=== PATIENT | male | born 1970 | race Caucasian/White ===

== ENCOUNTER → 2016-05-18 | Outpatient (CLI) | payer BC ==
[~2016-05-18] MED LIST: Bupivacaine 0.25% 10 ML SDV INJECT STA; Iopamidol 612 MG/ML 30 ML SDV IARTIC STA; Triamcinolone Acetonide 40 MG/ML 1 ML MDV INJECT STA
--- NOTE | 2016-05-18 12:18 | CR ---
EXAMINATION: Fluoro guided left hip steroid injection. HISTORY: Pain FINDINGS: Recent radiographs demonstrated moderate degenerative changes in the right hip joint. After written informed consent was obtained, under Fluoro guidance, using 1% lidocaine under aseptic conditions 22-gauge spinal needle was introduced into the left hip joint. After confirmation with c ontrast 80 mg of Kenalog, 03 cc of Marcaine was injected into the joint. The patient tolerated the p rocedure well. IMPRESSION: Successful Fluoro guided left hip joint steroid injection.
== END ==
LOC: MW.DI 09:56
PROVIDERS: ATTEND Orthopaedic Surgery
DX: M25.552 Pain in left hip (principal); M16.12 Unilateral primary osteoarthritis, left hip
CPT/HCPCS: 20610; 77002; J3301; Q9967

== ENCOUNTER 2017-05-08 09:34 | Day surgery (SDC) | payer BC ==
[~2017-05-08 09:34] MED LIST changes: +Acetaminophen/HYDROcodone 325-10 MG Tab PO PRN; -Bupivacaine 0.25% 10 ML SDV INJECT STA; +Bupivacaine 0.25% 10 ML SDV ONE; +Dexamethasone 4 MG/ML 5 ML MDV ONE; -Iopamidol 612 MG/ML 30 ML SDV IARTIC STA; +Ketorolac 10 MG Tab PO PRN; +Lactated Ringers 1,000 ML IV SCH; +Lidocaine 2% 5 ML SDV ONE; +Midazolam 1 MG/ML 2 ML SDV ONE; +Ondansetron 4 MG/2 ML SDV ONE; +Propofol 200 MG/20 ML SDV ONE; +Rocuronium 10 MG/ML 10 ML Syringe ONE; +Succinylcholine 200 MG/10 ML MDV ONE; -Triamcinolone Acetonide 40 MG/ML 1 ML MDV INJECT STA; +ceFAZolin 1 GM in Premix Bag 1 BAG IV SCH; +ceFAZolin/Dextrose,Iso-Osmotic 2 GM/50 ML Duplex Bag IV ONE; +diphenhydrAMINE 50 MG/ML SDV ONE; +fentaNYL 250 MCG/5 ML SDV ONE
--- NOTE | 2017-05-08 10:22 | PCM.PREANE ---
Preanesthetic Assessment - Anesthesia/Transfusion/Family Hx Anesthesia History: Prior Anesthesia Without Reaction Family History of Anesthesia Reaction: No Transfusion History: No Prior Transfusion(s) - Review of Systems General: No Symptoms Pulmonary: No Symptoms Cardiovascular: No Symptoms (Denies chest pain, palpitations, SOB or any other symptoms) Gastrointestinal: No Symptoms Neurological: No Symptoms Other: Reports: None - Physical Assessment O2 Sat by Pulse Oximetry: 96 Respiratory Rate: 16 Vital Signs: Last Vital Signs Temp 36.6 C 05/08/17 10:11 Pulse 68 05/08/17 10:11 Resp 16 05/08/17 10:11 BP 128/84 05/08/17 10:11 Pulse Ox 96 05/08/17 10:11 Height: 1.57 m Weight: 72.575 kg ASA Class: 2 Mental Status: Alert & Oriented x3 Airway Class: Mallampati = 2 Dentition: Reports: Normal Dentition ROM/Head Extension: Full Lungs: Clear to Auscultation Cardiovascular: Regular Rate - Allergies Allergies/Adverse Reactions: Allergies Allergy/AdvReac Type Severity Reaction Status Date / Time No Known Allergies Allergy Verified 05/06/17 08:34 - Blood Blood Available: No - Anesthesia Plan Free Text/Narrative:: GA with ETT. Patient denies any cardiac symptoms. - Acknowledgements Anesthesia Type Planned: General Anesthesia Pt an Appropriate Candidate for the Planned Anesthesia: Yes Alternatives and Risks of Anesthesia Discussed w Pt/Guardian: Yes Pt/Guardian Understands and Agrees with Anesthesia Plan: Yes PreAnesthesia Questionnaire - Past Health History Medical/Surgical History: Denies Medical/Surgical History HEENT History: Reports: Hard of Hearing Other HEENT History: wears glasses Cardiovascular History: Reports: Arrhythmia, High Cholesterol, Hypertension, Other (See Below) (Patient had a stress test that was negative last fall (~ November) and has not had any problems since. He sees Dr. Reynolds.) Other Cardiovascular History: hx of tachycardia, had cardiac testing done- started Metoprolol_ no tachycardia since Musculoskeletal History: Reports: Fracture Other Musculoskeletal History: hx of fx ribs - Past Surgical History Head Surgeries/Procedures: Reports: None HEENT Surgical History: Reports: LASIK Musculoskeletal Surgical History: Reports: Hip Replacement Other Musculoskeletal Surgeries/Procedures:: left KYA - SUBSTANCE USE Smoking Status *Q: Never Smoker Days Per Week of Alcohol Use: 7 Number of Drinks Per Day: 2 Total Drinks Per Week: 14 Recreational Drug Use History: No - HOME MEDS Home Medications: Home Meds Aspirin [[place] Aspirin] 81 mg PO BEDTIME 05/06/17 [History] Metoprolol Succinate 50 mg PO BEDTIME 05/06/17 [History] Multivitamin [Multivitamins] 1 tab PO BEDTIME 05/06/17 [History] Rosuvastatin Calcium 10 mg PO BEDTIME 05/06/17 [History] - CURRENT (IN HOUSE) MEDS Current Meds: Current Medications Hydrocodone Bitart/Acetaminophen ([place] 325-10 Mg) 1 - 2 tab PO Q4H PRN PRN Reason: Pain Cefazolin Sodium/Dextrose 1 gm (/ Premix) 50 mls @ 100 mls/hr IV ONCALL CAMMIE Lactated Ringer's (Ringers, Lactated) 1,000 mls @ 100 mls/hr IV ASDIRECTED [facility] Last Admin: 05/08/17 10:10 Dose: 100 mls/hr Ketorolac Tromethamine (Toradol) 10 mg PO Q6H PRN PRN Reason: Pain Stop: 05/13/17 08:01 Discontinued Medications Bupivacaine HCl (Sensorcaine-Mpf 0.25%) Confirm Administered Dose 10 ml .ROUTE .STK-MED ONE Stop: 05/08/17 07:31 Cefazolin Sodium/Dextrose (Ancef) Confirm Administered Dose 2 gm IV .STK-MED ONE Stop: 05/08/17 08:43 Dexamethasone (Dexamethasone) Confirm Administered Dose 20 mg .ROUTE .STK-MED ONE Stop: 05/08/17 08:43 Diphenhydramine HCl (Benadryl) Confirm Administered Dose 50 mg .ROUTE .STK-MED ONE Stop: 05/08/17 08:43 Fentanyl (Sublimaze) Confirm Administered Dose 250 mcg .ROUTE .STK-MED ONE Stop: 05/08/17 08:44 Lidocaine (Xylocaine-Mpf 2%) Confirm Administered Dose 5 ml .ROUTE .STK-MED ONE Stop: 05/08/17 08:44 Midazolam HCl (Versed 1 Mg/Ml) Confirm Administered Dose 2 mg .ROUTE .STK-MED ONE Stop: 05/08/17 08:43 Ondansetron HCl (Zofran) Confirm Administered Dose 4 mg .ROUTE .STK-MED ONE Stop: 05/08/17 08:43 Propofol (Diprivan 20 Ml) Confirm Administered Dose 200 mg .ROUTE .STK-MED ONE Stop: 05/08/17 08:43 Rocuronium [place] (Zemuron) Confirm Administered Dose 100 mg .ROUTE .STK-MED ONE Stop: 05/08/17 08:43 Succinylcholine Chloride (Quelicin) Confirm Administered Dose 200 mg .ROUTE .STK -MED ONE Stop: 05/08/17 08:43
[2017-05-08] MEDS ORDERED: HYDROmorphone 2 MG/ML SDV ONE (12:16)
[2017-05-08] MEDS ORDERED: Ketorolac 30 MG/ML SDV ONE (12:44)
--- NOTE | 2017-05-08 13:21 | PCM.OPNOTE ---
- General Post-Op/Procedure Note Date of Surgery/Procedure: 05/08/17 Operative Procedure(s): R Achilles tendon repair Post-Op Diagnosis: r Achilles tendon rupture Anesthesia Technique: General ET Tube Primary Surgeon: Radha Ortiz Tip Banding Machine Operator: Yazmin Swann in mLs: 5 Condition: Good Free Text/Narrative:: tt=31 min #[id number]
--- NOTE | 2017-05-08 13:59 | PCM.POSTAN ---
POST ANESTHESIA ASSESSMENT - MENTAL STATUS Mental Status: Alert, Oriented - RESPIRATORY Respiratory Status: Respiratory Rate WNL, Airway Patent, O2 Saturation Stable - CARDIOVASCULAR CV Status: Pulse Rate WNL, Blood Pressure Stable - GASTROINTESTINAL GI Status: No Symptoms - PAIN Pain Score: 0 - POST OP HYDRATION Hydration Status: Adequate & Stable
--- NOTE | 2017-05-08 14:51 | OR ---
SURGEON: Radha Ortiz MD DATE OF PROCEDURE: 05/08/2017 PREOPERATIVE DIAGNOSIS: Right Achilles tendon rupture. POSTOPERATIVE DIAGNOSIS: Right Achilles tendon rupture. PROCEDURE: Right Achilles tendon repair, open. POULTRY SCIENTIST: Yazmin Swann RN. ANESTHESIA: General. ESTIMATED BLOOD LOSS: 5 mL. TOURNIQUET TIME: 31 minutes. COMPLICATIONS: None. DVT PROPHYLAXIS: Not indicated. IMPLANTS USED: None. BRIEF HISTORY: Enoc is a 46-year-old male, who sustained a sudden onset of right calf pain. An MRI did confirm a complete rupture of the Achilles tendon. At that time, I discussed both conservative and surgical treatment options. The patient elected to proceed with surgical treatment. The risks and goals of procedure were discussed with the patient and were documented preoperatively. He agreed to proceed. DESCRIPTION OF PROCEDURE: The patient was properly identified and brought to the operating room. General anesthesia was administered on the cart. After adequate anesthesia was obtained, the patient was flipped onto the operating room table in a prone position. Chest rolls were used to allow the abdominal contents to hang free. Care was taken to pad all bony prominences. It should be noted that a tourniquet was applied to the right lower extremity prior to placing him in the prone position. The right lower extremity was then prepped in standard fashion using ChloraPrep solution. It was then sterilely draped. A time-out was performed to ensure correct site and procedure. Preoperative antibiotics were given. The surgical site had been marked preoperatively. The tourniquet was inflated to 250 mmHg. The defect was palpated. An incision was made over the site of the defect in a slightly medial to midline position. The full thickness of the skin was incised. The defect in the Achilles tendon was then identified. I did use a 15 blade scalpel to expose the paratenon and from the damaged tendon. Both ends of the tendon showed some diseased tissue. The ends were freshened. FiberWire was then placed into both the proximal and distal tendon using a modified Krackow type suture. The position of the contralateral foot was then inspected. The ends of the sutures were brought together allowing good reapproximation of the tendon tissue. The tension appeared equivalent to the contralateral side. Additional 2-0 FiberWire was used to secure the repair. An 0 Vicryl was then used in a running fashion to secure the entire tendon. At the completion, the foot was taken through a range of motion. With pressure on the calf, the ankle was able to plantar flex. I was able to get him to neutral dorsiflexion with minimal tension on the repair. The wound was then copiously irrigated with saline solution. The paratenon was closed over the tendon with 2- 0 Vicryl. The tourniquet was then deflated. No excess bleeding was noted. 3-0 Vicryl was used to close the subcutaneous tissues and the skin was closed with luan. Xeroform gauze was placed over the wound and a bulky dressing was applied. He was placed in a well-padded posterior splint with the foot in slight plantar flexion. He was awakened from his anesthesia and returned to the operating room cart. He was brought to recovery room in stable condition. All needle and sponge counts were correct. FIORELLA / LEÓN /[id number]
--- NOTE | 2017-05-08 15:32 | PCM48HPAN ---
Post Anesthesia Note - EVALUATION WITHIN 48HRS OF ANESTHETIC Vital Signs in Normal Range: Yes Patient Participated in Evaluation: Yes Respiratory Function Stable: Yes Airway Patent: Yes Cardiovascular Function Stable: Yes Hydration Status Stable: Yes Pain Control Satisfactory: Yes Nausea and Vomiting Control Satisfactory: Yes Mental Status Recovered: Yes Resp Rate: 10
[2017-05-08 17:53] VITALS: BP 137/86
== END 2017-05-08 16:48 | disposition home or self-care (01) ==
LOC: MW.SDS 09:34
PROVIDERS: ATTEND Orthopaedic Surgery
DX: S86.011A Strain of right Achilles tendon, initial encounter (principal); I10 Essential (primary) hypertension; E78.00 Pure hypercholesterolemia, unspecified; X58.XXXA Exposure to other specified factors, initial encounter; Z79.899 Other long term (current) drug therapy; Z79.82 Long term (current) use of aspirin
CPT/HCPCS: 27650; J0330; J0690; J1100; J1170; J1200; J1885; J2250; J2405; J3010; J7120; J2704

== ENCOUNTER 2021-01-04 06:25 | Day surgery (SDC) | payer BC ==
[2021-01-04] MEDS ORDERED: Lactated Ringers 1,000 ML IV SCH ×2 (07:00→09:00)
[2021-01-04] MEDS ORDERED: fentaNYL 100 MCG/2 ML SDV ONE (07:07)
[2021-01-04] MEDS ORDERED: Propofol 200 MG/20 ML SDV ONE (07:07)
--- NOTE | 2021-01-04 07:07 | PCM.PREANE ---
Preanesthetic Assessment - Anesthesia/Transfusion/Family Hx Anesthesia History: Prior Anesthesia Without Reaction Transfusion History: No Prior Transfusion(s) - Review of Systems General: No Symptoms Pulmonary: No Symptoms Cardiovascular: No Symptoms Gastrointestinal: No Symptoms Neurological: No Symptoms Other: Reports: None - Physical Assessment NPO Status Date: 01/04/21 NPO Status Time: 00:00 Vital Signs: Last Vital Signs Temp 97.9 F 01/04/21 06:32 Pulse 91 01/04/21 06:32 Resp 16 01/04/21 06:32 BP 143/93 H 01/04/21 06:32 Pulse Ox 98 01/04/21 06:32 Height: 5 ft 2 in Weight: 165 lb ASA Class: 2 Mental Status: Alert & Oriented x3 Airway Class: Mallampati = 2 Dentition: Reports: Normal Dentition Thyro-Mental Finger Breadths: 3 Mouth Opening Finger Breadths: 3 ROM/Head Extension: Full Lungs: Clear to Auscultation, Normal Respiratory Effort Cardiovascular: Regular Rate, Regular Rhythm - Allergies Allergies/Adverse Reactions: Allergies Allergy/AdvReac Type Severity Reaction Status Date / Time No Known Allergies Allergy Verified 12/29/20 08:01 - Acknowledgements Anesthesia Type Planned: General Anesthesia Pt an Appropriate Candidate for the Planned Anesthesia: Yes Alternatives and Risks of Anesthesia Discussed w Pt/Guardian: Yes Pt/Guardian Understands and Agrees with Anesthesia Plan: Yes PreAnesthesia Questionnaire - Past Health History Medical/Surgical History: Denies Medical/Surgical History HEENT History: Reports: Other (See Below) Other HEENT History: wears glasses Cardiovascular History: Reports: Arrhythmia, High Cholesterol, Hypertension, Other (See Below) Other Cardiovascular History: hx of tachycardia, had cardiac testing done- started Metoprolol_ no tachycardia since Respiratory History: Reports: None Gastrointestinal History: Reports: None Genitourinary History: Reports: None Musculoskeletal History: Reports: Arthritis, Fracture Other Musculoskeletal History: hx of fx ribs Neurological History: Reports: None Psychiatric History: Reports: None Endocrine/Metabolic History: Reports: None Hematologic History: Reports: None Immunologic History: Reports: None Oncologic (Cancer) History: Reports: None Dermatologic History: Reports: None - Past Surgical History Head Surgeries/Procedures: Reports: None HEENT Surgical History: Reports: LASIK Cardiovascular Surgical History: Reports: None Respiratory Surgical History: Reports: None GI Surgical History: Reports: None Male Surgical History: Reports: None Endocrine Surgical History: Reports: None Neurological Surgical History: Reports: None Musculoskeletal Surgical History: Reports: Other (See Below) Other Musculoskeletal Surgeries/Procedures:: left KYA, right Achilles repair Oncologic Surgical History: Reports: None Dermatological Surgical History: Reports: None - SUBSTANCE USE Tobacco Use Status *Q: Current Some Day Tobacco User Tobacco Use Within Last Twelve Months: Cigars - HOME MEDS Home Medications: Home Meds Aspirin [[place] Aspirin EC] 81 mg PO BEDTIME 05/06/17 [History] Metoprolol Succinate 50 mg PO BEDTIME 05/06/17 [History] Multivitamin [Multivitamins] 1 tab PO BEDTIME 05/06/17 [History] Rosuvastatin Calcium 10 mg PO BEDTIME 05/06/17 [History] Glucosamine/Chondr Serrano A Sod [Osteo Bi-Flex Caplet] 2 tab PO DAILY 12/29/20 [History] Relief Factor 4 tab PO BID 12/29/20 [History] - CURRENT (IN HOUSE) MEDS Current Meds: Current Medications Lactated Ringer's (Ringers, Lactated) 1,000 mls @ 125 mls/hr IV ASDIRECTED [facility] Lactated Ringer's (Ringers, Lactated) 1,000 mls @ 100 mls/hr IV ASDIRECTED [facility] Last Admin: 01/04/21 07:00 Dose: 100 mls/hr Documented by:
[2021-01-04] MEDS ORDERED: Labetalol 100 MG/20 ML MDV ONE (07:44)
--- NOTE | 2021-01-04 08:11 | PCM.POSTAN ---
POST ANESTHESIA ASSESSMENT - MENTAL STATUS Mental Status: Alert, Oriented - VITAL SIGNS Vital Signs: Last Vital Signs Temp 97.9 F 01/04/21 06:32 Pulse 91 01/04/21 06:32 Resp 16 01/04/21 06:32 BP 143/93 H 01/04/21 06:32 Pulse Ox 98 01/04/21 06:32 - RESPIRATORY Respiratory Status: Respiratory Rate WNL, Airway Patent, O2 Saturation Stable - CARDIOVASCULAR CV Status: Pulse Rate WNL, Blood Pressure Stable - GASTROINTESTINAL GI Status: No Symptoms - POST OP HYDRATION Hydration Status: Adequate & Stable
--- NOTE | 2021-01-04 08:11 | PCM48HPAN ---
Post Anesthesia Note - EVALUATION WITHIN 48HRS OF ANESTHETIC Vital Signs in Normal Range: Yes Patient Participated in Evaluation: Yes Respiratory Function Stable: Yes Airway Patent: Yes Cardiovascular Function Stable: Yes Hydration Status Stable: Yes Pain Control Satisfactory: Yes Nausea and Vomiting Control Satisfactory: Yes Mental Status Recovered: Yes Vital Signs: Last Vital Signs Temp 97.9 F 01/04/21 06:32 Pulse 91 01/04/21 06:32 Resp 16 01/04/21 06:32 BP 143/93 H 01/04/21 06:32 Pulse Ox 98 01/04/21 06:32
--- NOTE | 2021-01-04 08:15 | PCM.OPNOTE ---
- General Post-Op/Procedure Note Date of Surgery/Procedure: 01/04/21 Operative Procedure(s): Colonoscopy Findings: Normal colon dictation number [id number] Pre Op Diagnosis: Family history of colon cancer Post-Op Diagnosis: normal colon Anesthesia Technique: MAC Primary Surgeon: Tai Chau Pathology: None Complications: None Condition: Good
[2021-01-04 08:26] VITALS: BP 127/80; PULSE 76
--- NOTE | 2021-01-04 14:42 | OR ---
SURGEON: DARCY FLOREZ MD DATE OF PROCEDURE: 01/04/2021 PREOPERATIVE DIAGNOSIS: Family history of colon cancer. POSTOPERATIVE DIAGNOSIS: Normal colonoscopy. PRIMARY SURGEON: Darcy Florez MD. ANESTHESIA: With anesthesiologist. EXTENT OF COLONOSCOPY: To the cecum. BOWEL PREP: Very good. LIMITATIONS: None. REASON FOR PROCEDURE: Patient is a pleasant 50-year-old gentleman. He has never had a colonoscopy before. Denies any blood in his stool. He denies any changes in bowel habits. He says his paternal grandmother did have colon cancer. PROCEDURE IN DETAIL: Physical examination was performed. Major risks and benefits associated with procedure were explained to the patient in detail. Patient verbalized understanding and agreement with the same. The patient was then connected to the appropriate monitoring device and IV started. EKG, pulse, pulse ox, blood pressure, and capnography were monitored throughout the entire procedure. Continuous oxygen and sedation were provided by the anesthesiologist. The patient was placed in the left lateral decubitus position. Sedation began. After adequate sedation was achieved, a digital rectal exam was performed. No rectal masses or polyps were felt. Now, a well-lubricated Olympus colonoscope was inserted into the rectum and advanced under direct visualization to the level of the cecum. The cecum was identified with both visual and anatomic landmarks. The patient did have a bit of mucousy stool kind of stuck to the wall, especially in the cecum and ascending colon. It did take some time to wash it out on the way in and way out for actually good look at the mucosa. The rest of the colon had excellent bowel prep. No polyps or lesions were seen. Scope was retroflexed in the rectum, scope was completely removed, and the procedure was terminated. ENDOSCOPIC DIAGNOSIS: Normal colonoscopy. RECOMMENDATIONS: Followup colonoscopy in 5 years given his family history of colon cancer, sooner if he develops signs and symptoms such as change in bowel habits or blood in his stool. DEJON / LEÓN /[id number]
== END 2021-01-04 08:45 | disposition home or self-care (01) ==
LOC: MW.SDS 06:25
PROVIDERS: ATTEND Surgery
DX: Z12.11 Encounter for screening for malignant neoplasm of colon (principal); I10 Essential (primary) hypertension; E78.00 Pure hypercholesterolemia, unspecified; F17.210 Nicotine dependence, cigarettes, uncomplicated; Z79.899 Other long term (current) drug therapy; Z98.890 Other specified postprocedural states; Z80.0 Family history of malignant neoplasm of digestive organs
CPT/HCPCS: 45378; J2704; J3010; J3490; J7120; 00812